=== PATIENT | male | born 1980 | race Asian ===

== ENCOUNTER 2018-03-22 08:41 | Day surgery (SDC) | payer OTHER ==
[~2018-03-22 08:41] MED LIST: CEFAZOLIN 1 GM INJ; CEFAZOLIN 2 GM/50 ML (PMX) 50 ML IVPB; LACTATED RINGER'S 1,000 ML IV*; Metronidazole 500 MG in NS 100 ML IVPB; ROCURONIUM 50 MG INJ; SUCCINYLCHOLINE CHLORIDE 100 MG/5 ML SYG IV; metroNIDAZOLE 500 MG/100 ML NS IVPB
[2018-03-22] MEDS ORDERED: MIDAZOLAM 1 MG/ML 2 ML INJ (10:31)
[2018-03-22] MEDS ORDERED: FENTAnyl 50 MCG/ML VIAL ×2 (10:31→11:03)
[2018-03-22] MEDS ORDERED: PROPOFOL 20 ML (10:34)
[2018-03-22] MEDS ORDERED: ACETAMINOPHEN 1000MG/100ML IV 100 ML (10:34)
[2018-03-22] MEDS ORDERED: ONDANSETRON 4 MG INJ (10:36)
[2018-03-22] MEDS ORDERED: LIDOCAINE 2% (SDV) 5 ML INJ (10:36)
[2018-03-22] MEDS: LIDOCAINE 1% (MPF) 30 ML INJ (11:12)
[2018-03-22] MEDS: BUPIVACAINE 0.5%/EPI (SDV) 30 ML INJ (11:12)
[2018-03-22] MEDS ORDERED: HYDROmorphONE (0.2 MG/ML) 10ML SYG IV (12:00)
[2018-03-22] MEDS ORDERED: DIPHENHYDRAMINE 50 MG INJ IV (12:00)
[2018-03-22] MEDS ORDERED: ONDANSETRON 4 MG INJ IV (12:00)
[2018-03-22] MEDS: HYDROmorphONE (0.2 MG/ML) 10ML SYG IV (12:30)
== END 2018-03-22 15:10 | disposition home or self-care (01) ==
LOC: SDS 08:41
DX: K92.1 Melena (principal); K64.8 Other hemorrhoids
CPT/HCPCS: 46946